=== PATIENT | male | born 1965 | race Caucasian/White ===

== ENCOUNTER 2018-06-14 09:41 | Emergency (ER) | payer OTHER ==
[~2018-06-14] VITALS: Ht 177.8 cm; Wt 95.2 kg
[~2018-06-14 09:41] MED LIST: ALBU90OI61 INH; Cyclobenzaprine5 MG PO; DICL75ER PO; Dazidox10 MG PO; HYDACE5325 PO; MELO7.5 PO; METPRE4DP PO; Monodox100 MG PO; Norco 5-325 Ta1 EACH PO; OMEP20ER PO; Oxycodone HCl20 M1 PO; Prednisone20 MG PO; Valium5 MG PO
[2018-06-14] MEDS ORDERED: CYCL10 PO (11:28)
[2018-06-14] MEDS ORDERED: HYDR1TAB94 PO (11:28)
== END 2018-06-14 11:41 | disposition home or self-care (01) ==
LOC: ER 09:41
DX: S22.41XA Multiple fractures of ribs, right side, initial encounter for closed fracture (principal); Y04.8XXA Assault by other bodily force, initial encounter; Z79.891 Long term (current) use of opiate analgesic; F17.220 Nicotine dependence, chewing tobacco, uncomplicated
CPT/HCPCS: 71046; 99283-25

== ENCOUNTER 2020-02-09 11:29 | Day surgery (SDC) | payer OTHER ==
[~2020-02-09] VITALS: Ht 180.3 cm; Wt 87.9 kg
[~2020-02-09 11:29] MED LIST changes: +CYCL10 PO; +HYDR1TAB94 PO
[2020-02-09] MEDS ORDERED: OMEP20ER PO (11:56)
[2020-02-09] MEDS ORDERED: IBUP200 (11:56)
--- NOTE | 2020-02-09 12:00 | NUR ---
02/09/20 1200 Carol Spencer FIRST IV ATTEMPT IN RIGHT HAND WAS UNSUCCESSFUL. SECOND ATTEMPT IN RIGHT FOREARM WAS SUCCESSFUL AND TOLERATED WELL. BOTH ATTEMPTS BY [facility].RCL.
--- NOTE | 2020-02-09 13:58 | NUR ---
02/09/20 1358 Mariana Mann S PT. WITH A LITTLE ELEVATED BP POST ENDO. PT. VERBALIZES HE DOESN'T LIKE THE IV & PT. ALSO VERBALIZES HIS TONGUE HURTING WHEN HE WOKE UP IN ENDO ROOM. NO BLEEDING TO TONGUE, DIDN'T OBSERVE ANY SWELLING OR PLACE WHERE HE BIT HIS TONGUE BUT PT. VERBALIZED FEELING LIKE HE BIT HIS TONGUE. INSTRUCTED PT. THAT HE PUSHED THE BITE BLOCK OUT OF HIS MOUTH DURING PROCEDURE & HAD TO BE PLACED BACK IN. PT. DENIED ANY SORE THROAT. PT. REFUSED ANYTHING TO DRINK.
== END 2020-02-09 13:35 | disposition home or self-care (01) ==
LOC: ORSCSDS 11:29
PROVIDERS: Internal Medicine Gastroenterology
PROC: 0DB68ZX Excision of Stomach, Via Natural or Artificial Opening Endoscopic, Diagnostic (ICD-10-PCS; principal; 2020-02-09 12:45)
PROC: 0D758ZZ Dilation of Esophagus, Via Natural or Artificial Opening Endoscopic (ICD-10-PCS; principal; 2020-02-09 12:45)
PROC: 0DB98ZX Excision of Duodenum, Via Natural or Artificial Opening Endoscopic, Diagnostic (ICD-10-PCS; principal; 2020-02-09 12:45)
DX: R13.10 Dysphagia, unspecified (principal); K22.2 Esophageal obstruction; K44.9 Diaphragmatic hernia without obstruction or gangrene; K29.80 Duodenitis without bleeding
CPT/HCPCS: 88305; 88342; J2704; J7120

== ENCOUNTER 2020-12-06 09:09 | Day surgery (SDC) | payer OTHER ==
[~2020-12-06] VITALS: Ht 177.8 cm; Wt 87.9 kg
[~2020-12-06 09:09] MED LIST changes: +IBUP200
--- NOTE | 2020-12-06 10:01 | NUR ---
12/06/20 1001 Terry Wakefield FIRST IV IN RIGHT HAND BLEW SECOND IV IN RIGHT HAND WORKED
== END 2020-12-06 11:00 | disposition home or self-care (01) ==
LOC: ORSCSDS 09:09
PROVIDERS: Internal Medicine Gastroenterology
PROC: 0D758ZZ Dilation of Esophagus, Via Natural or Artificial Opening Endoscopic (ICD-10-PCS; principal; 2020-12-06 10:30)
PROC: 0DB58ZX Excision of Esophagus, Via Natural or Artificial Opening Endoscopic, Diagnostic (ICD-10-PCS; principal; 2020-12-06 10:30)
PROC: 0D757ZZ Dilation of Esophagus, Via Natural or Artificial Opening (ICD-10-PCS; principal; 2020-12-06 10:30)
DX: K20.0 Eosinophilic esophagitis (principal); K21.9 Gastro-esophageal reflux disease without esophagitis; R13.14 Dysphagia, pharyngoesophageal phase; K44.9 Diaphragmatic hernia without obstruction or gangrene; K22.2 Esophageal obstruction; G47.33 Obstructive sleep apnea (adult) (pediatric); F17.220 Nicotine dependence, chewing tobacco, uncomplicated
CPT/HCPCS: 88305; 88312; C1726; J2250; J2704; J7120

== ENCOUNTER 2023-06-22 20:25 | Emergency (ER) | payer OTHER ==
[~2023-06-22] VITALS: Ht 177.8 cm; Wt 90.7 kg
[2023-06-22 23:21] LABS: BASOPHILS ABSOLUTE AUTO 0.07 K/mm3 (0.00-0.23); BASOPHILS PERCENT AUTO 1 % (0-2); EOSINOPHILS ABSOLUTE AUTO 0.23 K/mm3 (0.00-0.68); EOSINOPHILS PERCENT AUTO 4 % (0-6); Hematocrit 42.3 % (37.0-53.0); Hemoglobin 14.2 g/dL (13.5-17.5); IMMATURE GRAN ABSOLUTE AUTO 0.01 K/mm3 (0.00-0.10); IMMATURE GRAN PERCENT AUTO 0 % (0-1); LYMPHOCYTES ABSOLUTE AUTO 1.92 K/mm3 (0.84-5.20); LYMPHOCYTES PERCENT AUTO 31 % (21-46); MONOCYTES ABSOLUTE AUTO 0.52 K/mm3 (0.16-1.47); MONOCYTES PERCENT AUTO 9 % (4-13); Mean Corpuscular HGB 30.1 pg (26.0-34.0); Mean Corpuscular HGB Conc 33.6 g/dL (31.5-36.5); Mean Corpuscular Volume 90 fL (80-100); Mean Platelet Volume 10.3 fL (9.1-12.4); NEUTROPHILS ABSOLUTE AUTO 3.38 K/mm3 (1.96-9.15); NEUTROPHILS PERCENT AUTO 55 % (41-73); Platelet Count 269 K/mm3 (150-400); RDW Coefficient Variation 13.5 % (11.7-14.2); RDW Standard Deviation 44.9 fL (35.1-46.3); Red Blood Cell Count 4.71 M/mm3 (4.30-5.90); White Blood Cell Count 6.13 K/mm3 (4.00-11.30)
[2023-06-22 23:34] LABS: Albumin, Blood 3.9 g/dL (3.4-5.0); Albumin/Globulin Ratio 0.9 (0.8-1.8); Bilirubin, Total 0.2 mg/dL (0.1-1.0); Bun/Creatinine Ratio 18.7 (12.0-20.0); Calcium, Blood 8.9 mg/dL (8.5-10.1); Creatinine, Blood 0.8 mg/dL (0.60-1.20); Globulin, Blood 4.2 g/dL (2.2-4.0); Total Protein, Blood 8.1 g/dL (6.4-8.2)
[2023-06-22 23:55] VITALS: BP 130/91
== END 2023-06-23 00:46 | disposition short-term general hospital (02) ==
LOC: ER 20:25
PROVIDERS: Student in an Organized Health Care Education/Training Program
DX: T17.228A Food in pharynx causing other injury, initial encounter (principal); Z88.8 Allergy status to other drugs, medicaments and biological substances; Z88.5 Allergy status to narcotic agent; Z79.899 Other long term (current) drug therapy; F17.220 Nicotine dependence, chewing tobacco, uncomplicated
CPT/HCPCS: 80053; 85025; 96374; 96375; 99284-25; J1610; J2405

== ENCOUNTER 2024-05-04 10:00 | Emergency (ER) | payer OTHER ==
[~2024-05-04] VITALS: Ht 172.7 cm; Wt 79.4 kg
[2024-05-04] MEDS ORDERED: Morphine Sulfate 4 MG/1 ML Injection IV ONE (10:35)
[2024-05-04] MEDS ORDERED: Ondansetron HCl 2 MG / ML 2ML Vial IV ONE (10:35)
[2024-05-04] MEDS ORDERED: Ketorolac Tromethamine 30mg Vial IV ONE (10:35)
[2024-05-04 11:05] LABS: BASOPHILS ABSOLUTE AUTO 0.07 K/mm3 (0.00-0.23); BASOPHILS PERCENT AUTO 1 % (0-2); EOSINOPHILS PERCENT AUTO 5 % (0-6); Hematocrit 43.7 % (37.0-53.0); Hemoglobin 14.9 g/dL (13.5-17.5); IMMATURE GRAN ABSOLUTE AUTO 0.01 K/mm3 (0.00-0.10); IMMATURE GRAN PERCENT AUTO 0 % (0-1); LYMPHOCYTES ABSOLUTE AUTO 1.89 K/mm3 (0.84-5.20); LYMPHOCYTES PERCENT AUTO 29 % (21-46); MONOCYTES ABSOLUTE AUTO 0.55 K/mm3 (0.16-1.47); MONOCYTES PERCENT AUTO 8 % (4-13); Mean Corpuscular HGB 30.6 pg (26.0-34.0); Mean Corpuscular HGB Conc 34.1 g/dL (31.5-36.5); Mean Corpuscular Volume 90 fL (80-100); NEUTROPHILS ABSOLUTE AUTO 3.78 K/mm3 (1.96-9.15); NEUTROPHILS PERCENT AUTO 57 % (41-73); Platelet Count 293 K/mm3 (150-400); RDW Coefficient Variation 13.4 % (11.7-14.2); RDW Standard Deviation 44.3 fL (35.1-46.3); Red Blood Cell Count 4.87 M/mm3 (4.30-5.90)
[2024-05-04 11:24] LABS: Albumin, Blood 3.6 g/dL (3.4-5.0); Bilirubin, Total 0.3 mg/dL (0.1-1.0); Bun/Creatinine Ratio 14.7 (12.0-20.0); Calcium, Blood 9.5 mg/dL (8.5-10.1); Creatinine, Blood 1.02 mg/dL (0.60-1.20); Globulin, Blood 3.6 g/dL (2.2-4.0); Potassium, Blood 4.1 mmol/L (3.5-5.5); Total Protein, Blood 7.2 g/dL (6.4-8.2)
[2024-05-04 14:29] LABS: Source, Urine Voided
[2024-05-04 14:35] LABS: Bilirubin, Urine Neg (Neg); Blood, Urine 1+ (Neg); Glucose Qualitative, Urine Neg (Neg); Ketones, Urine Neg (Neg); Leukocyte Esterase, Urine Neg (Neg); Nitrite, Urine Neg (Neg); Protein, Urine 2+ (Neg); Urobilinogen, Urine NORM (Normal)
[2024-05-04 14:53] LABS: Appearance, Urine Clear (Clear); Color, Urine Yellow (P-Yellow)
[2024-05-04 14:55] LABS: White Blood Cells, Urine 0-2 /hpf (0-5)
[2024-05-04 14:56] LABS: Bacteria Rare /hpf; Squamous Epithelial Cells Not Seen /hpf (Few)
[2024-05-04] MEDS ORDERED: Dexamethasone Sod Phos 10 MG/ML 1ML VIAL IV ONE (15:20)
[2024-05-04] MEDS ORDERED: HYDROmorphone HCl/Pf 1MG SYR IV ONE (15:20)
[2024-05-04] MEDS ORDERED: Ketamine HCL 10 MG in NS 100 ML IV ONE ×2 (16:10→16:25)
[2024-05-04] MEDS ORDERED: IBUP800 PO (16:54)
[2024-05-04] MEDS ORDERED: HYDROCODONE-AC1 EA10 PO (16:54)
[2024-05-04] MEDS ORDERED: METPRE4DP PO (16:54)
[2024-05-04 17:00] VITALS: BP 155/75
== END 2024-05-04 17:30 | disposition home or self-care (01) ==
LOC: ER 10:00
PROVIDERS: Emergency Medicine
DX: M54.16 Radiculopathy, lumbar region (principal); K21.9 Gastro-esophageal reflux disease without esophagitis; F17.220 Nicotine dependence, chewing tobacco, uncomplicated; Z79.899 Other long term (current) drug therapy; Z88.5 Allergy status to narcotic agent
CPT/HCPCS: 74177; 80053; 81001; 85025; 96374-59; 96375; 99284-25; J1100; J1171; J1885; J2270; J2405; Q9967